=== PATIENT | male | born 1960 | race Caucasian/White ===

== ENCOUNTER 2018-02-04 07:24 | Day surgery (SDC) | payer OTHER ==
[~2018-02-04] VITALS: Ht 175.3 cm; Wt 94.3 kg
[2018-02-04] MEDS ORDERED: HYDR-3293 PO (08:24)
[2018-02-04] MEDS ORDERED: METF500T PO (08:25)
[2018-02-04] MEDS ORDERED: ASPI81CT89 PO (08:25)
[2018-02-04] MEDS ORDERED: BUPIVACAINE-MPF/EPI 0.25% 30 ML VIAL INJ ONE (09:34)
[2018-02-04] MEDS ORDERED: MORPHINE SULFATE 2 MG/ML SYR IVP PRN (10:30)
[2018-02-04] MEDS ORDERED: MORPHINE SULFATE 4 MG/ML SYR IV PRN (10:30)
[2018-02-04] MEDS ORDERED: HYDROcodone/APAP 5/325 MG 1 TAB TAB PO PRN (10:30)
[2018-02-04] MEDS ORDERED: HYDROmorphone 1 MG/ML AMP IVP PRN (10:30)
[2018-02-04] MEDS ORDERED: ONDANSETRON 4 MG/2 ML VIAL IV PRN (10:30)
== END 2018-02-04 10:48 | disposition home or self-care (01) ==
LOC: MDS 07:24 → MMU 07:27 → MDS 10:48
PROVIDERS: ATTEND Surgery
DX: D17.0 Benign lipomatous neoplasm of skin and subcutaneous tissue of head, face and neck (principal); L72.3 Sebaceous cyst; I10 Essential (primary) hypertension; E11.9 Type 2 diabetes mellitus without complications; M19.90 Unspecified osteoarthritis, unspecified site; Z79.82 Long term (current) use of aspirin; Z79.899 Other long term (current) drug therapy; Z90.49 Acquired absence of other specified parts of digestive tract
CPT/HCPCS: 11401; 21555; 82948; 88304; J0690; J3490; J7030; J7060